=== PATIENT | female | born 1955 | race Caucasian/White ===

== ENCOUNTER 2019-05-28 13:13 | Emergency (ER) | payer MEDICAID ==
[~2019-05-28] VITALS: Ht 160 cm; Wt 68.9 kg
[~2019-05-28 13:13] MED LIST: MUPI22OI2 TOP
[2019-05-28 13:34] VITALS: BP 162/76; PULSE 74; RESP 18; Ht 160 cm; Wt 68.9 kg
== END 2019-05-28 14:46 | disposition home or self-care (01) ==
LOC: FTE 13:13
DX: Z48.01 Encounter for change or removal of surgical wound dressing (principal); E11.9 Type 2 diabetes mellitus without complications
CPT/HCPCS: 99283